=== PATIENT | female | born 1980 | race Caucasian/White ===

== ENCOUNTER 2020-05-10 15:24 | Emergency (ER) | payer MEDICAID ==
[2020-05-10 15:43] VITALS: BP 120/85; PULSE 84
[2020-05-10] MEDS ORDERED: Sodium Chloride 0.9% 10 ML Syringe FLUSH PRN (15:57)
[2020-05-10] MEDS ORDERED: Ondansetron 4 MG/2 ML SDV IVPUSH ONE (16:11)
[2020-05-10] MEDS ORDERED: HYDROmorphone 0.5 MG/0.5 ML Syringe IVPUSH ONE (16:11)
[2020-05-10] MEDS ORDERED: Ketorolac 30 MG/ML SDV IVPUSH ONE (16:11)
[2020-05-10] MEDS ORDERED: Sodium Chloride 0.9% 1,000 ML IV SCH (16:15)
--- NOTE | 2020-05-10 16:34 | EDM.PDOC ---
ED HPI GENERAL MEDICAL PROBLEM - General Chief Complaint: Flank Pain Stated Complaint: R SIDE BODY PAIN Time Seen by Provider: 05/10/20 15:43 Source of Information: Reports: Patient History Limitations: Reports: No Limitations - History of Present Illness INITIAL COMMENTS - FREE TEXT/NARRATIVE: Patient is a 39-year-old female who presents to the emergency department with acute onset of right-sided flank and low abdominal pain that started this morning. She describes the pain as constant with intermittent episodes of worsening sharp pain. She has had 2 episodes of vomiting this morning as well. She has a history of appendectomy. Denies any history of kidney stones. She is had no fever, chills, or diarrhea. States she had a bowel movement this morning which was normal. Denies dysuria. She has not had any noticeable blood in her urine. Right Flank Pain Score (Numeric/FACES): 8 - Related Data Allergies Allergy/AdvReac Type Severity Reaction Status Date / Time cefaclor [From Ceclor] Allergy Severe Rash Verified 05/10/20 15:44 phenobarbital Allergy Severe Other Verified 05/10/20 15:44 phenytoin sodium Allergy Severe Other Verified 05/10/20 15:44 [From Dilantin] phenytoin sodium extended Allergy Severe Other Verified 05/10/20 15:44 [From Dilantin] prednisone Allergy Severe Chest Verified 05/10/20 15:44 Tightness Home Meds: Home Meds Acetaminophen/oxyCODONE [Percocet 325-5 MG] 1 each PO Q4H PRN #10 tab 05/10/20 [Rx] Albuterol Sulfate [Albuterol Sulfate Hfa] 2 puff INH DAILY 05/10/20 [History] Fluticasone Propion/Salmeterol [Advair 250-50 Diskus] 1 puff INH BID 05/10/20 [History] Montelukast [Singulair] 10 mg PO DAILY 05/10/20 [History] Ondansetron [Zofran ODT] 4 mg PO Q6H PRN #10 tab.dis 05/10/20 [Rx] Oxybutynin Chloride [Ditropan Xl] 10 mg PO DAILY 05/10/20 [History] Tamsulosin [Tamsulosin 24 Hr] 0.4 mg PO DAILY #10 cap.er 05/10/20 [Rx] Past Medical History Respiratory History: Reports: 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 Denies: Fever, Chills, Weakness HEENT: Reports: No Symptoms Respiratory: Reports: No Symptoms. Denies: Shortness of Breath, Cough Cardiovascular: Reports: No Symptoms. Denies: Chest Pain Endocrine: Reports: No Symptoms GI/Abdominal: Reports: Abdominal Pain, Nausea, Vomiting. Denies: Diarrhea : Reports: Flank Pain (Right sided). Denies: Dysuria, Frequency, Hematuria Musculoskeletal: Reports: No Symptoms Skin: Reports: No Symptoms Neurological: Reports: No Symptoms Psychiatric: Reports: No Symptoms Hematologic/Lymphatic: Reports: No Symptoms Immunologic: Reports: No Symptoms ED EXAM, GI/ABD - Physical Exam Exam: See Below Exam Limited By: No Limitations General Appearance: Alert, WD/WN, No Apparent Distress Respiratory/Chest: No Respiratory Distress, Lungs Clear, Normal Breath Sounds, No Accessory Muscle Use, Chest Non-Tender Cardiovascular: Normal Peripheral Pulses, Regular Rate, Rhythm, No Edema, No Gallop, No JVD, No Murmur, No Rub GI/Abdominal Exam: Normal Bowel Sounds, Soft, No Organomegaly, No Distention, No Abnormal Bruit, No Mass, Pelvis Stable, Tender (Right lower and right lateral abdomen). No: Guarding, Rigid, Rebound Back Exam: Normal Inspection, Full Range of Motion, CVA Tenderness (R). No: CVA Tenderness (L) Neurological: Alert, Oriented, CN II-XII Intact, Normal Cognition, Normal Gait, Normal Reflexes, No Motor/Sensory Deficits Psychiatric: Normal Affect, Normal Mood Skin Exam: Warm, Dry, Intact, Normal Color, No Rash Course - Vital Signs Last Recorded V/S: Last Vital Signs Temp 96.7 F L 05/10/20 15:38 Pulse 84 05/10/20 15:38 Resp 18 05/10/20 15:38 BP 120/85 05/10/20 15:38 Pulse Ox 97 05/10/20 15:38 - Orders/Labs/Meds Orders: Active Orders 24 hr Category Date Time Status Peripheral IV Care [RC] . DIRECTED Care 05/10/20 15:57 Active Strain Urine [RC] ASDIRECTED Care 05/10/20 17:19 Active Sodium Chloride 0.9% [Normal Saline] 1,000 ml Med 05/10/20 16:15 Active IV ASDIRECTED Sodium Chloride 0.9% [Saline Flush] Med 05/10/20 15:57 Active 10 ml FLUSH ASDIRECTED PRN Peripheral IV Insertion Adult [OM.PC] Stat Oth 05/10/20 15:57 Ordered Medication Orders Sodium Chloride (Normal Saline) 1,000 mls @ 999 mls/hr IV ASDIRECTED MAUREEN Last Admin: 05/10/20 16:26 Dose: 150 mls/hr Documented by: SANTIAGO Sodium Chloride (Saline Flush) 10 ml FLUSH ASDIRECTED PRN PRN Reason: Keep Vein Open Last Admin: 05/10/20 16:26 Dose: 10 ml Documented by: [id number] Labs: Laboratory Tests 05/10/20 05/10/20 05/10/20 Range/Units 16:00 16:15 16:15 WBC 18.22 H (3.98-10.04) K/mm3 RBC 5.45 H (3.98-5.22) M/mm3 Hgb 14.9 (11.2-15.7) gm/dl Hct 45.9 H (34.1-44.9) % MCV 84.2 (79.4-94.8) fl MCH 27.3 (25.6-32.2) pg MCHC 32.5 (32.2-35.5) g/dl RDW Std Deviation 39.4 (36.4-46.3) fL Plt Count 333 (182-369) K/mm3 MPV 9.7 (9.4-12.3) fl Neut % (Auto) 92.1 H (34.0-71.1) % Lymph % (Auto) 4.5 L (19.3-51.7) % [place] % (Auto) 2.9 L (4.7-12.5) % Eos % (Auto) 0 L (0.7-5.8) Baso % (Auto) 0.3 (0.1-1.2) % Neut # (Auto) 16.77 H (1.56-6.13) K/mm3 Lymph # (Auto) 0.82 L (1.18-3.74) K/mm3 [place] # (Auto) 0.53 H (0.24-0.36) K/mm3 Eos # (Auto) 0.00 L (0.04-0.36) K/mm3 Baso # (Auto) 0.06 (0.01-0.08) K/mm3 Manual Slide Review Abnormal smear Sodium 140 (136-145) mEq/L Potassium 3.6 (3.5-5.1) mEq/L Chloride 103 (98-107) mEq/L Carbon Dioxide 26 (21-32) mEq/L Anion Gap 14.6 (5-15) BUN 14 (7-18) mg/dL Creatinine 1.1 H (0.55-1.02) mg/dL Est Cr Clr Drug Dosing 48.83 mL/min Estimated GFR (MDRD) 55 (>60) mL/min BUN/Creatinine Ratio 12.7 L (14-18) Glucose 145 H (74-106) mg/dL Calcium 9.2 (8.5-10.1) mg/dL Total Bilirubin 0.5 (0.2-1.0) mg/dL AST 30 (15-37) U/L ALT 28 (14-59) U/L Alkaline Phosphatase 108 (46-116) U/L C-Reactive Protein 4.5 H* (<1.0) mg/dL Total Protein 8.3 H (6.4-8.2) g/dl Albumin 3.7 (3.4-5.0) g/dl Globulin 4.6 gm/dL Albumin/Globulin Ratio 0.8 L (1-2) Urine Color Yellow (Yellow) Urine Appearance Clear (Clear) Urine pH 6.5 (5.0-8.0) Ur Specific [place] 1.025 (1.005-1.030) Urine Protein Trace H (Negative) Urine Glucose (UA) Negative (Negative) Urine Ketones 2+ H (Negative) Urine Occult Blood 1+ H (Negative) Urine Nitrite Negative (Negative) Urine Bilirubin Negative (Negative) Urine Urobilinogen 0.2 (0.2-1.0) Ur Leukocyte Esterase Negative (Negative) Urine RBC 0-5 (0-5) /hpf Urine WBC Not seen (0-5) /hpf Ur Squamous Epith Cells 0-5 (0-5) /hpf Urine Bacteria Few (FEW) /hpf Urine Mucus Few (FEW) /hpf Meds: Medications Generic Name Dose Route Start Last Admin Trade Name Pola PRN Reason Stop Dose Admin Sodium Chloride 1,000 mls @ 999 mls/hr 05/10/20 16:15 05/10/20 16:26 Normal Saline IV 150 mls/hr ASDIRECTED MAUREEN Administration Sodium Chloride 10 ml 05/10/20 15:57 05/10/20 16:26 Saline Flush FLUSH 10 ml ASDIRECTED PRN Administration Keep Vein Open Discontinued Medications Generic Name Dose Route Start Last Admin Trade Name Pola PRN Reason Stop Dose Admin Hydromorphone HCl 0.5 mg 05/10/20 16:11 05/10/20 16:27 Dilaudid IVPUSH 05/10/20 16:12 0.5 mg ONETIME ONE Administration Ketorolac Tromethamine 30 mg 05/10/20 16:11 05/10/20 16:27 Toradol IVPUSH 05/10/20 16:12 30 mg ONETIME ONE Administration Ondansetron HCl 4 mg 05/10/20 16:11 05/10/20 16:27 Zofran IVPUSH 05/10/20 16:12 4 mg ONETIME ONE Administration Tamsulosin HCl 0.4 mg 05/10/20 17:20 05/10/20 17:40 Flomax PO 05/10/20 17:21 0.4 mg ONETIME ONE Administration - Re-Assessments/Exams Free Text/Narrative Re-Assessment/Exam: 05/10/20 17:45 Hematology was significant for WBC elevated 18.22, creatinine 1.1, Kos 145, CRP 4.5. Urinalysis did not begin for 2+ ketones and 1+ occult blood. There is no signs of urinary tract infection. CT scan of the abdomen pelvis showed a mildly dilated right ureter caused by 4 mm obstructing stone within the distal right ureter near the UVJ. Discussed these findings with the patient. We will start her on Flomax and sent a prescription for Percocet and Zofran. She will be Friday with a urine strainer. Recommend that she follow-up with her primary care provider if she is able to collect the stone. Return to the ER for any worsening symptoms. Discharge instructions as documented. Departure - Departure Time of Disposition: 17:45 Disposition: Home, Self-Care 01 Condition: Good Clinical Impression: Kidney stone on right side - Discharge Information *PRESCRIPTION DRUG MONITORING PROGRAM REVIEWED*: Yes *COPY OF PRESCRIPTION DRUG MONITORING REPORT IN PATIENT CHAS: No Prescriptions: Tamsulosin [Tamsulosin 24 Hr] 0.4 mg PO DAILY #10 cap.er Acetaminophen/oxyCODONE [Percocet 325-5 MG] 1 each PO Q4H PRN #10 tab PRN Reason: Pain Ondansetron [Zofran ODT] 4 mg PO Q6H PRN #10 tab.dis PRN Reason: Nausea Instructions: Kidney Stones, [id number] Referrals: Kristy Nguyen MD [Primary Care Provider] - Forms: ED Department Discharge Additional Instructions: You were seen in the emergency department today for right-sided abdominal and back pain. Your work-up included blood work, urinalysis, and a CT scan of your abdomen pelvis. Results show that you have a 4 mm kidney stone within your right ureter which is likely the cause of your pain. You have been provided with a urine strainer. Recommend that you strain your urine each time you go until you pass the stone. Use [id number] Tylenol or ibuprofen as needed for pain. For pain not relieved by these measures, a prescription for Percocet has been sent. Take this medication only as prescribed and do not drive or work for 12 hours after taking the medication. You have also been started on Flomax to help facilitate passage of the stone as well as Zofran as needed for nausea. If you are able to collect the stone, recommend that you schedule follow-up appointment with your primary care doctor for pathology. If you continue to have pain after 1 week or you did not collect a stone your urine straining, would recommend that you also follow-up with your primary care provider to ensure that the stone has not become lodged in the ureter. Return to the ER as needed. Sepsis Event Note (ED) - Evaluation Sepsis Screening Result: No Definite Risk - Focused Exam Vital Signs: Vital Signs Temp Pulse Resp BP Pulse Ox 05/10/20 15:38 96.7 F L 84 18 120/85 97 - My Orders Last 24 Hours: My Active Orders 05/10/20 15:57 Peripheral IV Care [RC] . DIRECTED Sodium Chloride 0.9% [Saline Flush] 10 ml FLUSH ASDIRECTED PRN Peripheral IV Insertion Adult [OM.PC] Stat 05/10/20 16:15 Sodium Chloride 0.9% [Normal Saline] 1,000 ml IV ASDIRECTED 05/10/20 17:19 Strain Urine [RC] ASDIRECTED - Assessment/Plan Last 24 Hours: My Active Orders 05/10/20 15:57 Peripheral IV Care [RC] . DIRECTED Sodium Chloride 0.9% [Saline Flush] 10 ml FLUSH ASDIRECTED PRN Peripheral IV Insertion Adult [OM.PC] Stat 05/10/20 16:15 Sodium Chloride 0.9% [Normal Saline] 1,000 ml IV ASDIRECTED 05/10/20 17:19 Strain Urine [RC] ASDIRECTED
--- NOTE | 2020-05-10 16:59 | CT ---
CT abdomen and pelvis Technique: Multiple axial sections were obtained from above the dome of the diaphragm inferiorly through the pubic symphysis. Intravenous and oral contrast not utilized. Study has been performed as a ureteral stone protocol. Comparison: No prior CT abdomen or pelvis studies are available. Findings: Dilated right ureter is seen. This finding is caused by a 4.0 mm stone within the distal right ureter close to the UVJ. No other ureteral calculi are seen. No ureteral stone is appreciated. Visualized lung bases show nothing acute. Liver contains no focal parenchymal abnormality. Spleen appears within normal limits. Adrenal glands show no nodule. Pancreas shows no discrete abnormality. Gallbladder contains no calcified gallstones. Aorta shows no aneurysm. No retroperitoneal adenopathy or mesenteric abnormalities are seen. No pelvic mass or adenopathy is seen. No free fluid or inflammatory change is seen. Surgical material is seen off the tip of the cecum presumably from prior appendectomy. Bone window settings were reviewed which shows a small umbilical hernia on the sagittal views. Minimal degenerative change is scattered within the spine. Impression: 1. Mildly dilated right ureter caused by a 4 mm obstructing stone within the distal right ureter near the UVJ. 2. Other findings believed to be nonacute as described above. Diagnostic code #3 This report was dictated in MDT
[2020-05-10] MEDS ORDERED: Tamsulosin 0.4 MG Cap.ER PO ONE (17:20)
== END 2020-05-10 18:30 | disposition home or self-care (01) ==
LOC: JD.ED 15:24
DX: N20.2 Calculus of kidney with calculus of ureter (principal); J45.909 Unspecified asthma, uncomplicated; Z88.1 Allergy status to other antibiotic agents; Z88.8 Allergy status to other drugs, medicaments and biological substances; Z79.899 Other long term (current) drug therapy
CPT/HCPCS: 36415; 74176; 80053; 81001; 85025; 86140; 96361; 96374; 96375; 99284; A9270; J1170; J1885; J2405; J7030; 99283

== ENCOUNTER 2021-08-24 19:54 | Emergency (ER) | payer MEDICAID ==
[2021-08-24] MEDS ORDERED: Ondansetron 4 MG Tab.DIS PO ONE (21:08)
[2021-08-24] MEDS ORDERED: Loperamide 2 MG Cap PO ONE (21:08)
[2021-08-24] MEDS ORDERED: Sodium Chloride 0.9% 10 ML Syringe FLUSH PRN (21:17)
--- NOTE | 2021-08-24 21:24 | EDM.PDOC ---
<LunaYadira V - Last Filed: 08/24/21 23:37> ED HPI GENERAL MEDICAL PROBLEM - General Chief Complaint: Respiratory Problem Stated Complaint: BODY ACHE/FEVER/DIARRHEA Time Seen by Provider: 08/24/21 21:06 Source of Information: Reports: Patient, RN Notes Reviewed History Limitations: Reports: No Limitations - History of Present Illness INITIAL COMMENTS - FREE TEXT/NARRATIVE: Patient is a 40-year-old female presents to the ER for the evaluation of her multiple generalized symptoms. Patient states she has been around her mother, and brother who are both sick with Covid roughly 2 weeks ago to 1 week ago. States she has been sick for about 7 days. She comes into the ER today because she cannot keep any sort of fluids down at all. Patient states she has body aches all over, and also having some loose stools as well. Not been evaluated for COVID-19 in the past. Patient does have asthma, and has a BMI of 46. O2 sats are low at the initial time of exam, at a roughly 86 to 87% on room air. We will put her on 2 L via nasal cannula. States that she just feels generally lethargic, and again just cannot keep anything down for fluids so she comes to the ER for evaluation. - Related Data Allergies Allergy/AdvReac Type Severity Reaction Status Date / Time cefaclor [From Ceclor] Allergy Severe Rash Verified 08/24/21 21:07 phenobarbital Allergy Severe Other Verified 08/24/21 21:07 phenytoin sodium Allergy Severe Other Verified 08/24/21 21:07 [From Dilantin] phenytoin sodium extended Allergy Severe Other Verified 08/24/21 21:07 [From Dilantin] prednisone Allergy Severe Chest Verified 08/24/21 21:07 Tightness Influenza Virus Vaccines Allergy Anaphylactic Verified 08/24/21 21:07 Shock Home Meds: Home Meds Acetaminophen/oxyCODONE [Percocet 325-5 MG] 1 each PO Q4H PRN #10 tab 05/10/20 [Rx] Albuterol Sulfate [Albuterol Sulfate Hfa] 2 puff INH DAILY 05/10/20 [History] Fluticasone Propion/Salmeterol [Advair 250-50 Diskus] 1 puff INH BID 05/10/20 [History] Montelukast [Singulair] 10 mg PO DAILY 05/10/20 [History] Ondansetron [Zofran ODT] 4 mg PO Q6H PRN #10 tab.dis 05/10/20 [Rx] Oxybutynin Chloride [Ditropan Xl] 10 mg PO DAILY 05/10/20 [History] Tamsulosin [Tamsulosin 24 Hr] 0.4 mg PO DAILY #10 cap.er 05/10/20 [Rx] dexAMETHasone [Decadron] 6 mg PO DAILY #6 tablet 08/25/21 [Rx] Past Medical History 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 ED EXAM, GENERAL - Physical Exam Exam: See Below Exam Limited By: No Limitations General Appearance: Alert, WD/WN, No Apparent Distress Respiratory/Chest: No Respiratory Distress, Lungs Clear, Normal Breath Sounds, No Accessory Muscle Use, Chest Non-Tender Cardiovascular: Normal Peripheral Pulses, Regular Rate, Rhythm, No Edema Peripheral Pulses: 2+: Radial (L), Radial (R) Extremities: Normal Inspection, Normal Capillary Refill Neurological: Alert, Oriented, Normal Cognition, No Motor/Sensory Deficits Psychiatric: Normal Affect, Normal Mood Skin Exam: Warm, Dry, Intact, Normal Color, No Rash Course - Re-Assessments/Exams Free Text/Narrative Re-Assessment/Exam: 08/24/21 21:23 Patient presents to the ER for the evaluation of her multiple Covid-like symptoms. Covid swab was obtained at triage, we will go ahead and get some basic labs get IV started, will give her oral Zofran to see if she can tolerate oral fluids but rather not give her IV fluids. She will get 1 dose of loperamide as well for her reported loose stools. Patient is hypoxic at the time of triage and will likely necessitate hospitalization. 08/24/21 22:42 Nursing staff did report that they put on 2 L nasal cannula and she did improve to around 92 to 93% on room air. Also states that she feels better with the Zofran. Labs have resulted CBC is unremarkable, CMP essentially unremarkable however she does have some mild elevation of her liver enzymes. CRP is elevated at 12.5, and her Covid screen was positive. Due to her needing oxygen, and being Covid positive she will likely necessitate hospitalization I have been in contact with [facility] in [place] and they were checking on bed status at this time. Patient's chest x-ray also showed signs of Bilateral Covid pneumonia as well. 08/24/21 23:37 I did get a call back from [facility] in [place], they still were not sure if they would be able to accept this patient definitively. They are still checking on a few ER patients and then will get back to us about transfer. In the meantime patient will rest, and I did discuss the patient's case with Dr. Hong and he will assume care for further disposition. Departure - Departure Disposition: Home, Self-Care 01 Clinical Impression: Pneumonia due to COVID-19 virus, Hypoxia - Discharge Information Prescriptions: dexAMETHasone [Decadron] 6 mg PO DAILY #6 tablet Instructions: Hypoxia, COVID-19, Community-Acquired Pneumonia, Adult, [id number] Referrals: Kristy Nguyen MD [Primary Care Provider] - Forms: ED Department Discharge Sepsis Event Note (ED) - Evaluation Sepsis Screening Result: No Definite Risk <Hunter Hong - Last Filed: 08/25/21 06:35> Course - Vital Signs Last Recorded V/S: Last Vital Signs Temp 36.6 C 08/24/21 21:05 Pulse 101 H 08/24/21 21:05 Resp 16 08/24/21 21:05 BP 109/78 08/24/21 21:05 Pulse Ox 92 L 08/24/21 21:17 - Orders/Labs/Meds Orders: Active Orders 24 hr Category Date Time Status Oxygen Therapy, ED [RC] ASDIRECTED Care 08/24/21 21:17 Active Peripheral IV Care [RC] . DIRECTED Care 08/24/21 21:17 Active Chest 1V Frontal [CR] Stat Exams 08/24/21 21:17 Taken Sodium Chloride 0.9% [Saline Flush] Med 08/24/21 21:17 Active 10 ml FLUSH ASDIRECTED PRN Peripheral IV Insertion Adult [OM.PC] Routine Oth 08/24/21 21:17 Ordered Medication Orders Sodium Chloride (Sodium Chloride 0.9% 10 Ml Syringe) 10 ml FLUSH ASDIRECTED PRN PRN Reason: Keep Vein Open Last Admin: 08/24/21 23:29 Dose: 10 ml Documented by: HERMMIC Labs: Laboratory Tests 08/24/21 08/24/21 08/24/21 Range/Units 21:09 21:43 21:43 WBC 7.33 (3.98-10.04) K/mm3 RBC 5.76 H (3.98-5.22) M/mm3 Hgb 15.5 (11.2-15.7) gm/dl Hct 46.7 H (34.1-44.9) % MCV 81.1 D (79.4-94.8) fl MCH 26.9 (25.6-32.2) pg MCHC 33.2 (32.2-35.5) g/dl RDW Std Deviation 39.3 (36.4-46.3) fL Plt Count 251 D (182-369) K/mm3 MPV 10.1 (9.4-12.3) fl Neut % (Auto) 76.8 H (34.0-71.1) % Lymph % (Auto) 15.3 L (19.3-51.7) % [place] % (Auto) 7.2 (4.7-12.5) % Eos % (Auto) 0.1 L (0.7-5.8) Baso % (Auto) 0.5 (0.1-1.2) % Neut # (Auto) 5.62 (1.56-6.13) K/mm3 Lymph # (Auto) 1.12 L (1.18-3.74) K/mm3 [place] # (Auto) 0.53 H (0.24-0.36) K/mm3 Eos # (Auto) 0.01 L (0.04-0.36) K/mm3 Baso # (Auto) 0.04 (0.01-0.08) K/mm3 Manual Slide Review D-Dimer, Quantitative (0.19-0.50) mg/L Sodium 140 (136-145) mEq/L Potassium 3.6 (3.5-5.1) mEq/L Chloride 101 (98-107) mEq/L Carbon Dioxide 29 (21-32) mEq/L Anion Gap 13.6 (5-15) BUN 14 (7-18) mg/dL Creatinine 0.8 (0.55-1.02) mg/dL Est Cr Clr Drug Dosing 66.47 mL/min Estimated GFR (MDRD) > 60 (>60) mL/min BUN/Creatinine Ratio 17.5 (14-18) Glucose 130 H (70-99) mg/dL Calcium 8.5 (8.5-10.1) mg/dL Total Bilirubin 0.8 (0.2-1.0) mg/dL AST 78 H (15-37) U/L ALT 69 H (14-59) U/L Alkaline Phosphatase 121 H (46-116) U/L C-Reactive Protein 12.5 H* (<1.0) mg/dL Total Protein 7.0 (6.4-8.2) g/dl Albumin 2.9 L (3.4-5.0) g/dl Globulin 4.1 gm/dL Albumin/Globulin Ratio 0.7 L (1-2) Urine Color (Yellow) Urine Appearance (Clear) Urine pH (5.0-8.0) Ur Specific [place] (1.005-1.030) Urine Protein (Negative) Urine Glucose (UA) (Negative) Urine Ketones (Negative) Urine Occult Blood (Negative) Urine Nitrite (Negative) Urine Bilirubin (Negative) Urine Urobilinogen (0.2-1.0) Ur Leukocyte Esterase (Negative) U Hyaline Cast (Auto) (0-5) /lpf Urine RBC (0-5) /hpf Urine WBC (0-5) /hpf Ur Squamous Epith Cells (0-5) /hpf Urine Bacteria (FEW) /hpf Urine Mucus (FEW) /hpf Influenza Type A RNA Negative (NEGATIVE) Influenza Type B RNA Negative (NEGATIVE) SARS-CoV-2 RNA ([place]) Positive H (NEGATIVE) 08/24/21 08/25/21 Range/Units 21:45 00:29 WBC (3.98-10.04) K/mm3 RBC (3.98-5.22) M/mm3 Hgb (11.2-15.7) gm/dl Hct (34.1-44.9) % MCV (79.4-94.8) fl MCH (25.6-32.2) pg MCHC (32.2-35.5) g/dl RDW Std Deviation (36.4-46.3) fL Plt Count (182-369) K/mm3 MPV (9.4-12.3) fl Neut % (Auto) (34.0-71.1) % Lymph % (Auto) (19.3-51.7) % [place] % (Auto) (4.7-12.5) % Eos % (Auto) (0.7-5.8) Baso % (Auto) (0.1-1.2) % Neut # (Auto) (1.56-6.13) K/mm3 Lymph # (Auto) (1.18-3.74) K/mm3 [place] # (Auto) (0.24-0.36) K/mm3 Eos # (Auto) (0.04-0.36) K/mm3 Baso # (Auto) (0.01-0.08) K/mm3 Manual Slide Review D-Dimer, Quantitative 1.28 H (0.19-0.50) mg/L Sodium (136-145) mEq/L Potassium (3.5-5.1) mEq/L Chloride (98-107) mEq/L Carbon Dioxide (21-32) mEq/L Anion Gap (5-15) BUN (7-18) mg/dL Creatinine (0.55-1.02) mg/dL Est Cr Clr Drug Dosing mL/min Estimated GFR (MDRD) (>60) mL/min BUN/Creatinine Ratio (14-18) Glucose (70-99) mg/dL Calcium (8.5-10.1) mg/dL Total Bilirubin (0.2-1.0) mg/dL AST (15-37) U/L ALT (14-59) U/L Alkaline Phosphatase (46-116) U/L C-Reactive Protein (<1.0) mg/dL Total Protein (6.4-8.2) g/dl Albumin (3.4-5.0) g/dl Globulin gm/dL Albumin/Globulin Ratio (1-2) Urine Color Dark yellow (Yellow) Urine Appearance Slt cloudy H (Clear) Urine pH 6.0 (5.0-8.0) Ur Specific [place] 1.025 (1.005-1.030) Urine Protein 2+ H (Negative) Urine Glucose (UA) Negative (Negative) Urine Ketones Negative (Negative) Urine Occult Blood 3+ H (Negative) Urine Nitrite Negative (Negative) Urine Bilirubin 1+ H (Negative) Urine Urobilinogen 2.0 H (0.2-1.0) Ur Leukocyte Esterase Negative (Negative) U Hyaline Cast (Auto) 0-5 (0-5) /lpf Urine RBC 20-30 H (0-5) /hpf Urine WBC 0-5 (0-5) /hpf Ur Squamous Epith Cells 0-5 (0-5) /hpf Urine Bacteria Moderate H (FEW) /hpf Urine Mucus Moderate H (FEW) /hpf Influenza Type A RNA (NEGATIVE) Influenza Type B RNA (NEGATIVE) SARS-CoV-2 RNA ([place]) (NEGATIVE) Meds: Medications Generic Name Dose Route Start Last Admin Trade Name Freq PRN Reason Stop Dose Admin Sodium Chloride 10 ml 08/24/21 21:17 08/24/21 23:29 Sodium Chloride 0.9% 10 Ml Syringe FLUSH 10 ml ASDIRECTED PRN Administration Keep Vein Open Discontinued Medications Generic Name Dose Route Start Last Admin Trade Name Freq PRN Reason Stop Dose Admin Dexamethasone 6 mg 08/24/21 22:49 08/24/21 23:29 Dexamethasone 10 Mg/Ml Sdv IVPUSH 08/24/21 22:50 6 mg ONETIME ONE Administration Remdesivir 200 mg/ Sodium 250 mls @ 250 mls/hr 08/24/21 22:49 08/24/21 23:29 Chloride IV 08/24/21 22:50 250 mls/hr ONETIME ONE Administration Loperamide HCl 4 mg 08/24/21 21:08 08/24/21 21:25 Loperamide 2 Mg Cap PO 08/24/21 21:09 4 mg ONETIME ONE Administration Ondansetron HCl 4 mg 08/24/21 21:08 08/24/21 21:25 Ondansetron 4 Mg Tab.Dis PO 08/24/21 21:09 4 mg ONETIME ONE Administration - Re-Assessments/Exams Free Text/Narrative Re-Assessment/Exam: 08/25/21 06:35 Assumed care during routine shift change. Overnight, patient only requiring 1 to 2 L via nasal cannula despite lying entirely supine. At this point, patient is well-appearing and does not require any additional resources. Given her low oxygen requirements and feeling better. She is also tolerating p.o. at this time, she will be discharged with home oxygen, dexamethasone and Zofran. Return precautions discussed as usual. Patient agrees with plan of care. Departure - Departure Time of Disposition: 06:29 Sepsis Event Note (ED) - Focused Exam Vital Signs: Vital Signs Temp Pulse Resp BP Pulse Ox Pulse Ox 08/24/21 21:17 92 L 08/24/21 21:05 36.6 C 101 H 16 109/78 86 L
[2021-08-24 22:06] LABS: CORONAVIRUS COVID-19 NAA POSITIVE (NEGATIVE)
[2021-08-24] MEDS ORDERED: Dexamethasone 10 MG/ML SDV IVPUSH ONE (22:49)
[2021-08-24] MEDS ORDERED: REMDESIVIR 200 MG in Sodium Chloride 0.9% 250 ML IV ONE (22:49)
--- NOTE | 2021-08-25 06:56 | CR ---
Chest: Frontal view of the chest was obtained. Comparison: Prior chest x-rays of 01/03/16 and 12/30/15. Heart size and mediastinum are within normal limits. Patchy areas of increased density are noted throughout both sides of the chest. Bony structures show nothing acute. Impression: 1. Patchy areas of increased density within both sides of the chest highly suspicious for COVID-19 pneumonia. Diagnostic code #3
[2021-08-25 08:38] VITALS: BP 111/70; PULSE 82
== END 2021-08-25 08:30 | disposition home or self-care (01) ==
LOC: JD.ED 19:54
DX: U07.1 COVID-19 (principal); J12.82 Pneumonia due to coronavirus disease 2019; R09.02 Hypoxemia; Z88.1 Allergy status to other antibiotic agents; Z88.7 Allergy status to serum and vaccine; Z88.8 Allergy status to other drugs, medicaments and biological substances; Z79.899 Other long term (current) drug therapy
CPT/HCPCS: 0240U; 36415; 71045; 80053; 81001; 85025; 85379; 86140; 96365; 96375; 99284; A9270; J1100; J7050